=== PATIENT | female | born 1980 | race Caucasian/White ===

== ENCOUNTER 2018-10-04 03:52 | Emergency (ER) | payer SELFPAY ==
--- NOTE | 2018-10-04 04:05 | PDOC ---
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 Patient with 1 week of burning, sore throat, worse with PO solid intake. Recently seen at [facility] and told she has HSV-2. On Valacyclolvir. Denies OTC symptom control. Patient denies MORGAN, vision change, palpitations, cough, wheezing, orthopena, PND , leg swelling/pain, N/V, F,C, CP, SOB, urinary complaints, hematuria, BPR, abdominal pain, diarrhea, constipation, lightheadedness, weakness, sensory changes. PMHx: as noted above ROS: as noted Allergies: NKDA Past History - Past Medical History Allergies/Adverse Reactions: Allergies Allergy/AdvReac Type Severity Reaction Status Date / Time No Known Allergies Allergy Verified 10/04/18 05:25 Review of Systems - Review of Systems Comments:: 10/04/18 04:04 GENERAL/CONSTITUTIONAL: No fever or chills. No weakness. HEAD, EYES, EARS, NOSE AND THROAT: + Sore throat. No change in vision. No ear pain or discharge. CARDIOVASCULAR: No chest pain or shortness of breath RESPIRATORY: No cough, wheezing, or hemoptysis. GASTROINTESTINAL: No nausea, vomiting, diarrhea or constipation. GENITOURINARY: No dysuria, frequency, or change in urination. MUSCULOSKELETAL: No joint or muscle swelling or pain. No neck or back pain. SKIN: No rash NEUROLOGIC: No headache, vertigo, loss of consciousness, or change in strength/ sensation. ENDOCRINE: No increased thirst. No abnormal weight change HEMATOLOGIC/LYMPHATIC: No anemia, easy bleeding, or history of blood clots. ALLERGIC/IMMUNOLOGIC: No hives or skin allergy. *Physical Exam - Physical Exam Comments: 10/04/18 04:04 GENERAL: Awake, alert, and fully oriented, in no acute distress HEAD: No signs of trauma, normocephalic, atraumatic EYES: PERRLA, EOMI, sclera anicteric, conjunctiva clear ENT: + Tonsilar enlargement. Auricles normal inspection, hearing grossly normal , nares patent, oropharynx clear without exudates. Moist mucosa NECK: Normal ROM, supple, no lymphadenopathy, JVD, or masses LUNGS: No distress, speaks full sentences, clear to auscultation bilaterally HEART: Regular rate and rhythm, normal S1 and S2, no murmurs, rubs or gallops, peripheral pulses normal and equal bilaterally. ABDOMEN: Soft, nontender, normoactive bowel sounds. No guarding, no rebound. No masses EXTREMITIES : Normal inspection, Normal range of motion, no edema. No clubbing or cyanosis. NEUROLOGICAL: Cranial nerves II through XII grossly intact. 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 Vitals wnl, AF, a&Ox3. + Bilateral tonsilar swelling, with absent exudate, uvula deviation. No evidence resp compromise, or evidence peritonsilar abscess. ED Course: Strep Ag 10/04/18 05:41 strep neg Pt. stable for d/c with return precautions. *DC/Admit/Observation/Transfer Diagnosis at time of Disposition: Sore throat - Discharge Dispostion Condition at time of disposition: Stable Decision to Admit order: No - Referrals - Patient Instructions Printed Discharge Instructions: DI for Viral Pharyngitis Additional Instructions: Please return to the emergency department with any new or worsening symptoms or concerns. Please follow up with your primary care physician within 72 hours. - Post Discharge Activity - Attestations Physician Attestion: 10/04/18 04:04 I attest to the information provided in this note.
[2018-10-04 05:13] VITALS: BP 111/51; PULSE 82; TEMP 98.3; BMI 26.6
== END 2018-10-04 06:52 | disposition home or self-care (01) ==
LOC: JER 03:52
DX: J02.9 Acute pharyngitis, unspecified (principal); B97.89 Other viral agents as the cause of diseases classified elsewhere; Z86.19 Personal history of other infectious and parasitic diseases
CPT/HCPCS: 87070; 87880; 99282-25